=== PATIENT | male | born 1940 | race Caucasian/White ===

== ENCOUNTER 2016-08-02 10:29 | Emergency (ER) | payer MEDICARE, BC ==
--- NOTE | ~2016-08-02 | CR141 ---
[facility] A Service of [facility] & [facility] RADIOLOGY TEXT RESULTS PATIENT: LOLY WINCHESTER LOCATION: [facility] : 36 UNIT #: [id number] AGE: [address]: Joe Norton SEX: M ORDER DR: [id number] [facility] [address] [place], [place] [address] [id number] MR#: [id number] Acc #: [id number] NAME: LOLY WINCHESTER : 1940 SEX: M STUDY DATE/TIME: 08/02/2016 10:26 UNIT: [facility] ROOM: STUDY DESCRIPTION: CR Hand Min 3 Views Lt Attending Physician: Joe Norton Ordering Physician: Joe Norton Primary Care Physician: Gee Johnson M.D. MEDICAL IMAGING REPORT This report is preliminary unless electronic signature is present EXAM 3 views left hand INDICATIONS Lacerations to second and fifth middle interphalangeal joints on the left hand. FINDINGS No acute fracture or subluxation of the left hand is identified. Patient reportedly had the history of lacerations, however I do not see any definite soft tissue abnormalities. 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 No aggressive osseous abnormalities are seen. IMPRESSION No acute findings. Dictated by... Rhiannon Rojas M.D. THIS IS AN ELECTRONICALLY VERIFIED REPORT Rhiannon Rojas M.D. at 08/05/2016 12:59 PM AFF/rnr TD: 08/03/2016 04:12 JOB #: [id number] MEDICAL IMAGING REPORT Page 1 of 1 COPY
[~2016-08-02 10:29] MED LIST: AMIODARONE PO; AMLODIPINE-BENA1 CAP; BAYER ASPIRIN325 M1 PO; HYDROCODON-ACE1 EAC5 PO; KEPPRA500 M1 PO; KLONOPIN; KLONOPIN2 MG PO; LISINOPRIL20 MG PO; LORTAB 10-5001 EACH; METOPROLOL SUCC25 MG PO; NORVASC PO; PRAVACHOL; PROZAC; PROZAC PO; RISPERDAL0.5 M1 DOB; RISPERDAL1 M1 PO; RISPERDAL2 MG PO; SKELAXIN PO; TAMIFLU75 M1 PO; [UNRECOGNIZED DRUG - REMARK]
== END 2016-08-02 11:37 | disposition home or self-care (01) ==
LOC: CED 10:29
DX: S60.512A Abrasion of left hand, initial encounter (principal); S60.511A Abrasion of right hand, initial encounter; I10 Essential (primary) hypertension; Z87.891 Personal history of nicotine dependence; Z95.1 Presence of aortocoronary bypass graft; W01.0XXA Fall on same level from slipping, tripping and stumbling without subsequent striking against object, initial encounter; Y92.009 Unspecified place in unspecified non-institutional (private) residence as the place of occurrence of the external cause
CPT/HCPCS: 73130; 99283